=== PATIENT | female | born 1970 | race Two or more races ===

== ENCOUNTER 2022-02-06 12:39 | Emergency (ER) | payer MEDICAID ==
[~2022-02-06] VITALS: Ht 152.4 cm; Wt 78.0 kg
[2022-02-06 12:59] VITALS: BP 157/61
[2022-02-06 18:29] LABS: CLARITY URINE CLOUDY (CLEAR); COLOR URINE RED (YELLOW); KETONES URINE NEGATIVE (NEGATIVE); LEUKOCYTE ESTERASE URINE 3+ (NEGATIVE); NITRITE URINE NEGATIVE (NEGATIVE); OCCULT BLOOD URINE 3+ (NEGATIVE); PH URINE 6.5 (4.5-8.0); PROTEIN URINE 3+ (NEGATIVE); SPECIFIC GRAVITY URINE 1.007 (1.005-1.030); UROBILINOGEN URINE 0.2 E.U./dL (0.2-1.0)
[2022-02-06] MEDS ORDERED: CEFP200T13 MT (18:39)
[2022-02-06] MEDS ORDERED: TOPUD PO (18:44)
[2022-02-06] MEDS ORDERED: IBUP-2028 MT (18:44)
[2022-02-06] MEDS ORDERED: CEFTRIAXONE SODIUM 1 G/VIAL IM ONE (18:45)
[2022-02-06] MEDS ORDERED: LIDOCAINE HCL 1% 20ML VIAL (Pyxis) INJ INFIL ONE (18:45)
== END 2022-02-06 19:26 | disposition home or self-care (01) ==
LOC: ER 12:39
DX: N39.0 Urinary tract infection, site not specified (principal); E78.00 Pure hypercholesterolemia, unspecified; I10 Essential (primary) hypertension
CPT/HCPCS: 81003; 81025; 87086; 99283; J0696

== ENCOUNTER 2024-12-13 20:02 | Emergency (ER) | payer MEDICAID ==
[~2024-12-13] VITALS: Ht 149.9 cm; Wt 77.0 kg
[~2024-12-13 20:02] MED LIST: CEFP200T13 MT; IBUP-2028 MT; TOPUD PO
[2024-12-13 20:20] VITALS: O2SAT 99
[2024-12-13] MEDS: KETOROLAC 30MG/ML VIAL IM ONE (23:11)
[2024-12-14] MEDS ORDERED: NAPR-677 MT (00:49)
[2024-12-14 00:57] VITALS: BP 156/72; PULSE 84; RESP 19; TEMP 37; O2SAT 100
== END 2024-12-14 01:12 | disposition home or self-care (01) ==
LOC: ER 20:02
DX: M25.562 Pain in left knee (principal); M25.561 Pain in right knee; M72.2 Plantar fascial fibromatosis; I10 Essential (primary) hypertension; Z79.1 Long term (current) use of non-steroidal anti-inflammatories (NSAID)
CPT/HCPCS: 99284; 73560; 73630; 96372; J1885

== ENCOUNTER 2025-01-07 02:46 | Emergency (ER) | payer MEDICAID ==
[~2025-01-07] VITALS: Ht 149.9 cm; Wt 79.0 kg
[~2025-01-07 02:46] MED LIST changes: +NAPR-677 MT
[2025-01-07 02:52] VITALS: O2SAT 99
[2025-01-07 04:12] LABS: CLARITY URINE CLOUDY (CLEAR); COLOR URINE RED (YELLOW); GLUCOSE URINE NEGATIVE (NEGATIVE); KETONES URINE NEGATIVE (NEGATIVE); LEUKOCYTE ESTERASE URINE 3+ (NEGATIVE); NITRITE URINE POSITIVE (NEGATIVE); OCCULT BLOOD URINE 3+ (NEGATIVE); PH URINE 6.5 (4.5-8.0); PROTEIN URINE 3+ (NEGATIVE); SPECIFIC GRAVITY URINE 1.015 (1.005-1.030); UROBILINOGEN URINE 0.2 E.U./dL (0.2-1.0)
[2025-01-07] MEDS ORDERED: NITR100C MT (05:11)
[2025-01-07 05:16] VITALS: BP 167/67; PULSE 68; RESP 16; TEMP 36.9; O2SAT 98
[2025-01-07 05:55] LABS: RBC URINE TNTC /hpf (0-2); SQUAMOUS EPITHELIAL CELL URINE NONE SEEN /lpf (RARE/1+); WBC URINE 25-50 /hpf (0-2)
[2025-01-07 05:57] LABS: BACTERIA URINE 1+
== END 2025-01-07 05:33 | disposition home or self-care (01) ==
LOC: ER 02:46
DX: N30.91 Cystitis, unspecified with hematuria (principal); E78.00 Pure hypercholesterolemia, unspecified; I10 Essential (primary) hypertension; Z79.1 Long term (current) use of non-steroidal anti-inflammatories (NSAID); Z79.899 Other long term (current) drug therapy
CPT/HCPCS: 81003; 81025; 87077; 87186; 99283

== ENCOUNTER 2025-05-16 03:22 | Emergency (ER) | payer MEDICAID ==
[~2025-05-16] VITALS: Ht 162.6 cm; Wt 73.0 kg
[~2025-05-16 03:22] MED LIST changes: +NITR100C MT
[2025-05-16 03:30] VITALS: O2SAT 98
[2025-05-16 05:17] VITALS: BP 171/80; PULSE 76; RESP 20; TEMP 37; O2SAT 98
== END 2025-05-16 05:19 | disposition home or self-care (01) ==
LOC: ER 03:22
DX: R07.89 Other chest pain (principal); E78.00 Pure hypercholesterolemia, unspecified; I10 Essential (primary) hypertension
CPT/HCPCS: 71045; 93005; 99283